=== PATIENT | male | born 1995 | race African-American/Black ===

== ENCOUNTER 2019-11-17 08:15 | Emergency (ER) | payer OTHER ==
[~2019-11-17] VITALS: Ht 165.1 cm; Wt 81.6 kg
[2019-11-17 08:33] VITALS: BP 118/75
[2019-11-17 09:25] LABS: PLATELET COUNT 205 K/uL (142-355)
[2019-11-17 10:08] VITALS: TEMP 101.1
== END 2019-11-17 10:55 | disposition home or self-care (01) ==
LOC: ED 08:15
PROVIDERS: Family Medicine
DX: J10.2 Influenza due to other identified influenza virus with gastrointestinal manifestations (principal); R50.9 Fever, unspecified; R11.2 Nausea with vomiting, unspecified
CPT/HCPCS: 80053; 81000; 85027; 87502; 87651; 99283